=== PATIENT | female | born 2005 | race Caucasian/White ===

== ENCOUNTER 2025-01-31 06:21 | Emergency (ER) | payer SELFPAY | END 2025-01-31 08:12 | disposition home or self-care (01) | LOC: CSHERS 06:21 | DX: J98.9 Respiratory disorder, unspecified (principal); B97.89 Other viral agents as the cause of diseases classified elsewhere; Z55.6 Problems related to health literacy | CPT/HCPCS: 87081; 87428; 87430; 99284; Q0162 ==